=== PATIENT | female | born 1975 | race Caucasian/White ===

== ENCOUNTER 2017-11-30 19:18 | Inpatient (IN) ==
--- NOTE | 2017-11-30 19:42 | Emergency Department Note ---
Disposition Clinical Impression: Hypokalemia, Hyponatremia, Hypochloremia, Influenza A, Septic shock UTI (urinary tract infection) Qualifiers: Urinary tract infection type: site unspecified Hematuria presence: with hematuria Qualified Code(s): N39.0 - Urinary tract infection, site not specified Hypotension Qualifiers: Hypotension type: unspecified hypotension type Qualified Code(s): I95.9 - Hypotension, unspecified Sepsis Qualifiers: Sepsis type: sepsis due to unspecified organism Qualified Code(s): A41.9 - Sepsis, unspecified organism Disposition: Admitted As Inpatient Condition: Fair Time of Disposition: 21:48 General Adult HPI - General Chief complaint: ED General Medical Stated complaint: flu - feeling worse Time Seen by Provider: 11/30/17 19:25 Source: patient Limitations: no limitations Nursing Notes Reviewed: Yes Vital Signs Reviewed: Yes - History of Present Illness HPI Narrative: Patient is a 42-year-old female with past medical history of COPD, hypertension. She was recently diagnosed with flu yesterday. She states that she has had 5 days of cough, congestion, diffuse body aches, nausea, vomiting, diarrhea. Denies any blood in her vomit or stool. She is unsure of fever, has not checked her temperature at home. She states that she has had worsening of her symptoms, feels dehydrated, especially with stool output. She feels lightheaded when she goes from sitting to standing. She is concerned for dehydration and was told that if she had any worsening symptoms from urgent care yesterday that she was to come to the hospital for admission. Pain Scale: 0 - Related Data Home Medications Medication Instructions Recorded Confirmed Klonopin 11/29/17 Lisinopril-HCTZ 10-12.5 11/29/17 Metoprolol 11/29/17 Omeprazole 11/29/17 11/29/17 Paroxetine 11/29/17 Zofran ODT 11/29/17 Previous Rx's Medication Instructions Recorded Meclizine HCl [Verticalm] 25 mg PO TID PRN #30 tablet 11/29/17 Oseltamivir [Tamiflu] 75 mg PO BID #10 capsule 11/29/17 Promethazine [Phenergan] 25 mg PO Q6HR PRN #15 tablet 11/29/17 Promethazine/Dextromethorphan 5 ml PO Q4-6H PRN #120 ml 11/29/17 [Promethazine-Dm Syrup] Allergies Allergy/AdvReac Type Severity Reaction Status Date / Time almond Allergy Swelling Verified 09/17/17 09:56 of Lip/Tongue/Throat diphenhydramine Allergy Difficulty Verified 09/17/17 09:55 [From Benadryl] Breathing shellfish derived Allergy Swelling Verified 09/17/17 09:56 of Lip/Tongue/Throat Sulfa (Sulfonamide Allergy Itching Verified 09/17/17 09:55 Antibiotics) terfenadine [From Seldane] Allergy See Verified 09/17/17 09:55 Comments All systems ED: reviewed and negative except as stated. Constitutional: Denies: fever Cardiovascular: Denies: chest pain Respiratory: Reports: cough, dyspnea Gastrointestinal: Reports: nausea, vomiting, diarrhea. Denies: abdominal pain, constipation, hematemesis, melena, hematochezia Genitourinary: Denies: urgency, dysuria, frequency, hematuria, discharge, abnormal menses Musculoskeletal: Reports: myalgia Neurological: Denies: headache, weakness, numbness, paresthesias Past Medical History - Past Medical History Attestation: Yes The following information was validated with the patient. 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 - Social History Smoking Status: Current every day smoker Smokeless Tobacco Status: No Alcohol use: Reports: none Drug use: Reports: none Physical Exam - General Limitations: no limitations General appearance: alert, in no apparent distress - Head Head exam: atraumatic, normocephalic, normal inspection - Eye Eye exam: Present: normal appearance, PERRL, EOMI - ENT ENT exam: normal exam, normal oropharynx, mucous membranes dry - Neck Neck exam: Present: normal inspection, full ROM, trachea midline - Chest Chest inspection: Present: normal inspection, symmetric chest wall rise - Respiratory Respiratory exam: Present: wheezes (wheeze right lower lobe;tachypnic) - Cardiovascular Cardiovascular exam: Present: normal rhythm, tachycardia, normal heart sounds - Abdominal Exam Abdominal exam: Present: soft, tenderness (very mild generalized tenderness). Absent: distention, guarding, rebound, rigidity, Pond's sign, Rovsing's sign, tenderness at McBurney's Point - Extremities Exam Extremities exam: Present: normal inspection, full ROM. Absent: tenderness, pedal edema - Back Exam Back exam: Present: normal inspection, full ROM. Absent: tenderness - Neurological Exam Neurological exam: Present: alert, oriented X3, CN II-XII intact. Absent: motor sensory deficit - Psychiatric Psychiatric exam: Present: normal affect, normal mood - Skin Skin exam: Present: warm, dry, intact, normal color Course Course Narrative: On my exam, patient was tachycardic and hypertensive. Her heart rate was in the low 100s. Blood pressure was systolic of 70. She is also tachypneic on my exam. Concern for sepsis with fluids source. We will give the patient 2 L bolus, obtained sepsis labs including blood cultures, lactic, BMP, CBC, troponin was obtained EKG. Patient does report a history of A. fib, however, patient is not in A. fib currently. EKG shows sinus tachycardia with no acute ST elevation or depression. Also perform a chest x-ray to assess for any pneumonia, patient does have a wheeze in the right lower lobe. This is likely secondary to COPD, smoking history, flu. However, there is concern for pneumonia after viral flu infection. 21:41 creatinine elevated at 3.1, potassium 2.9. We will replace with oral potassium. Urine sent for culture, it was a cath specimen and positive for small leuk - will treat with rocephin. Patient has received 3 L of normal saline. Blood pressure now up to systolic of upper 90s, up from systolic of 70s. Mentating well at this time. Heart rate is now within normal limits. We will admit for further care - sepsis, flu, hypotension, hypokalemia, DEMETRI, UTI. Vital Signs Temperature 98 F 11/30/17 19:19 Pulse Rate 98 11/30/17 19:19 Respiratory Rate 18 11/30/17 19:19 Blood Pressure 79/60 11/30/17 19:19 O2 Sat by Pulse Oximetry 98 11/30/17 19:19 Temperature 98 F 11/30/17 19:19 Pulse Rate 88 11/30/17 21:26 Respiratory Rate 12 11/30/17 21:26 Blood Pressure 90/56 11/30/17 21:26 O2 Sat by Pulse Oximetry 98 11/30/17 19:19 Oxygen Delivery Oxygen Delivery Room Air Medical Decision Making - MDM Narrative Medical decision making narrative: On my exam, patient was tachycardic and hypertensive. Her heart rate was in the low 100s. Blood pressure was systolic of 70. She is also tachypneic on my exam. Concern for sepsis with fluids source. We will give the patient 2 L bolus, obtained sepsis labs including blood cultures, lactic, BMP, CBC, troponin was obtained EKG. Patient does report a history of A. fib, however, patient is not in A. fib currently. EKG shows sinus tachycardia with no acute ST elevation or depression. Also perform a chest x-ray to assess for any pneumonia, patient does have a wheeze in the right lower lobe. This is likely secondary to COPD, smoking history, flu. However, there is concern for pneumonia after viral flu infection. 21:41 creatinine elevated at 3.1, potassium 2.9. We will replace with oral potassium. Urine sent for culture, it was a cath specimen and positive for small leuk - will treat with rocephin. Patient has received 3 L of normal saline. Blood pressure now up to systolic of upper 90s, up from systolic of 70s. Mentating well at this time. Heart rate is now within normal limits. We will admit for further care - sepsis, flu, hypotension, hypokalemia, DEMETRI, UTI. - Medical Records Medical records reviewed: Yes I reviewed the patient's medical records. - Lab Data Lab results reviewed: Yes I reviewed the patient's lab results. Result diagrams: 11/30/17 20:00 11/30/17 19:42 Lab Results 11/30/17 11/30/17 11/30/17 Range/Units 19:42 19:42 19:42 WBC (4.3-11.1) K/mcL RBC (3.82-4.97) M/mcL Hgb (11.5-15.4) g/dL Hct (35.3-44.9) % MCV (83.0-100.0) fL MCH (28.0-33.3) pg MCHC (31.6-35.5) g/dL RDW (11.5-14.5) % Plt Count (140-400) K/mcL MPV (9.4-12.4) fL Immature Gran % (0-4) % Seg Neutrophils % % Lymphocytes % % Monocytes % % Eosinophils % % Basophils % % Neutrophils # (1.6-8.9) K/mcL Lymphocytes # (0.6-4.6) K/mcL Monocytes # (0.0-1.3) K/mcL Eosinophils # (0.0-0.6) K/mcL Basophils # (0.0-0.2) K/mcL PT 11.9 (9.4-12.1) Seconds INR 1.1 APTT 34.0 (26.0-36.0) Seconds Sodium 129 L (136-145) mEq/L Potassium 2.9 L (3.5-5.1) mEq/L Chloride 96 L (98-107) mEq/L Carbon Dioxide 22 L (23-29) mEq/L BUN 27 H (6-20) mg/dL Creatinine 3.15 H (0.60-1.20) mg/dL Est GFR ( Amer) 19 L (> 60) Est GFR (Non-Af Amer) 16 L (> 60) BUN/Creatinine Ratio 9 (6-26) Glucose 135 H (70-105) mg/dL Calculated Osmolality 275 L (280-300) Lactic Acid (0.5-2.2) mmol/L Calcium 8.5 L (8.6-10.3) mg/dL Phosphorus 3.3 (2.7-4.5) mg/dL Magnesium 2.0 (1.6-2.6) mg/dL Total Bilirubin 0.5 (0.3-1.0) mg/dL Direct Bilirubin 0.2 (0.0-0.2) mg/dL Indirect Bilirubin 0.3 (0.0-1.2) mg/dL AST 88 H (13-39) Units/L ALT 76 H (7-52) Units/L Alkaline Phosphatase 55 (34-104) Units/L Troponin I 0.03 (< 0.04) ng/mL Serum Total Protein 7.1 (6.4-8.9) g/dL Albumin 3.8 (3.5-5.7) g/dL Globulin 3.3 (2.4-3.5) g/dL Albumin/Globulin Ratio 1.2 (1.1-2.2) Ur Specimen Adequacy Urine Color (Yellow) Urine Clarity (Clear) Urine pH (5.0-8.0) pH Units Ur Specific Harwood (1.010-1.025) Urine Protein (Neg-Trace) mg/dL Urine Glucose (UA) (Normal) mg/dL Urine Ketones (Negative) mg/dL Urine Blood (Negative) Urine Nitrite (Negative) Urine Bilirubin (Negative) Urine Urobilinogen (Normal) mg/dL Ur Leukocyte Esterase (Negative) Urine Microscopic RBC (0-3) per hpf Urine Microscopic WBC (0-3) per hpf Ur Squamous Epith Cells (None-Few) per lpf Urine Bacteria (None-Few) per hpf Ur Culture Indicated? (NO) 11/30/17 11/30/17 11/30/17 Range/Units 19:56 20:00 20:32 WBC 6.7 (4.3-11.1) K/mcL RBC 4.64 (3.82-4.97) M/mcL Hgb 14.4 (11.5-15.4) g/dL Hct 43.4 (35.3-44.9) % MCV 93.5 (83.0-100.0) fL MCH 31.0 (28.0-33.3) pg MCHC 33.2 (31.6-35.5) g/dL RDW 12.8 (11.5-14.5) % Plt Count 162 (140-400) K/mcL MPV 9.9 (9.4-12.4) fL Immature Gran % 0.4 (0-4) % Seg Neutrophils % 64.5 % Lymphocytes % 24.3 % Monocytes % 10.3 % Eosinophils % 0.1 % Basophils % 0.4 % Neutrophils # 4.3 (1.6-8.9) K/mcL Lymphocytes # 1.6 (0.6-4.6) K/mcL Monocytes # 0.7 (0.0-1.3) K/mcL Eosinophils # 0.0 (0.0-0.6) K/mcL Basophils # 0.0 (0.0-0.2) K/mcL PT (9.4-12.1) Seconds INR APTT (26.0-36.0) Seconds Sodium (136-145) mEq/L Potassium (3.5-5.1) mEq/L Chloride (98-107) mEq/L Carbon Dioxide (23-29) mEq/L BUN (6-20) mg/dL Creatinine (0.60-1.20) mg/dL Est GFR ( Amer) (> 60) Est GFR (Non-Af Amer) (> 60) BUN/Creatinine Ratio (6-26) Glucose (70-105) mg/dL Calculated Osmolality (280-300) Lactic Acid 1.7 (0.5-2.2) mmol/L Calcium (8.6-10.3) mg/dL Phosphorus (2.7-4.5) mg/dL Magnesium (1.6-2.6) mg/dL Total Bilirubin (0.3-1.0) mg/dL Direct Bilirubin (0.0-0.2) mg/dL Indirect Bilirubin (0.0-1.2) mg/dL AST (13-39) Units/L ALT (7-52) Units/L Alkaline Phosphatase (34-104) Units/L Troponin I (< 0.04) ng/mL Serum Total Protein (6.4-8.9) g/dL Albumin (3.5-5.7) g/dL Globulin (2.4-3.5) g/dL Albumin/Globulin Ratio (1.1-2.2) Ur Specimen Adequacy See below A Urine Color Dark Yellow (Yellow) Urine Clarity Cloudy A (Clear) Urine pH 5.5 (5.0-8.0) pH Units Ur Specific Harwood >= 1.030 H (1.010-1.025) Urine Protein 100 H (Neg-Trace) mg/dL Urine Glucose (UA) 100 H (Normal) mg/dL Urine Ketones 15 H (Negative) mg/dL Urine Blood Large H (Negative) Urine Nitrite Negative (Negative) Urine Bilirubin Large H (Negative) Urine Urobilinogen Normal (Normal) mg/dL Ur Leukocyte Esterase Small H (Negative) Urine Microscopic RBC 15-30 H (0-3) per hpf Urine Microscopic WBC 15-30 H (0-3) per hpf Ur Squamous Epith Cells Moderate H (None-Few) per lpf Urine Bacteria Many H (None-Few) per hpf Ur Culture Indicated? YES A (NO) - Radiology Data Radiology results reviewed: Yes I reviewed the patient's radiology results. Chest X-Ray 11/30/17 19:42 IMPRESSION: Low lung volumes. Discoid atelectasis at the left lung base. No active cardiopulmonary disease. D/ / Donny Alvarado MD / Donny Alvarado MD Interpreting Provider: Donny Alvarado MD - EKG Data EKG #1 EKG attestation: Yes I reviewed and interpreted this EKG. EKG results narrative: 11/30/2017 at 19:36. Sinus tachycardia. No acute ST elevation or depression. Rate 106. MD 132. QRS 77. QTC 398. Normal axis. S.B.A.R. - S.B.A.R. Situation: Demographics, MOA Background: Presenting Complaint, Relevant PMH, Meds, & Allergies Assessment: Vital Signs, Course and respsone to treatment, Exam Concerns, Patient/Family Expectation, Pertinant Lab Results, Outstanding Labs Recommendation: Barrier(s) to disposition, Recommendation based on pending studies, treatments, or consults S.B.A.R. Report Given to: Dr. Gutierrez SJuanyB.A.RJuany Repor Time: 21:48 Attestation Statement - Attestation Attestation: I examined this patient and my medical decision-making was reviewed with the Resident Physician. I agree with the documented findings, disposition and treatment plan as described except to the extent set forth below. Patient presents to the ED with a chief complaint of not feeling well. Patient had cough and body aches for 5 days. Got worse yesterday so she went to urgent care. She had a positive flu. She has been taking Tamiflu. States she feels worse today. Hurts to cough. Dizzy. On examination she is hypotensive. Lungs with rhonchi. Abdomen soft. Plan. Septic workup. Patient with positive flu. Hypotensive. IV fluids. Likely admission. Patient with UTI. Need septic shock criteria. She received 3 L normal saline. She is now normotensive with a systolic blood pressure in the 90s. Admitted to medicine. 45 minutes of critical care exclusive of separately billed procedures. Sepsis Reassessment Note - Evaluation Sepsis Screen: No Definite Risk Current Stage of Sepsis: septic shock Possible Source of Sepsis: genitourinary - Focused Exam Date of Encounter: 11/30/17 Time of Encounter: 22:16 Vital Signs: Vital Signs Temp Pulse Resp BP Pulse Ox 11/30/17 21:26 88 12 90/56 11/30/17 21:03 88 12 90/56 11/30/17 19:46 95 16 85/66 11/30/17 19:19 98 F 98 18 79/60 98 Respiratory Exam: Present: rhonchi Cardiovascular Exam: Present: RRR Capillary Refill: < 2 seconds Peripheral Pulse Strength: 3+ normal Peripheral Pulse Location: Radial Skin Exam: unremarkable - Reassessment Comments Comments: Patient now normotensive after 3 L normal saline bolus
[2017-11-30] MEDS ORDERED: 0.9 % Sodium Chloride 1,000 ML IVC SCH (19:45)
[2017-11-30 19:55] LABS: INR 1.1; Prothrombin Time 11.9 Seconds (9.4-12.1)
[2017-11-30 20:02] LABS: Basophils % 0.4 %; Eosinophils % 0.1 %; Hematocrit 43.4 % (35.3-44.9); Hemoglobin 14.4 g/dL (11.5-15.4); Immature Granulocytes % 0.4 % (0-4); Lymphocytes # 1.6 K/mcL (0.6-4.6); Lymphocytes % 24.3 %; Mean Corpuscular HGB Conc 33.2 g/dL (31.6-35.5); Mean Corpuscular Volume 93.5 fL (83.0-100.0); Mean Platelet Volume 9.9 fL (9.4-12.4); Monocytes # 0.7 K/mcL (0.0-1.3); Monocytes % 10.3 %; Neutrophils # 4.3 K/mcL (1.6-8.9); Platelet Count 162 K/mcL (140-400); Red Blood Count 4.64 M/mcL (3.82-4.97); Red Cell Distribution Width 12.8 % (11.5-14.5); Segmented Neutrophils % 64.5 %
[2017-11-30 20:22] LABS: Albumin 3.8 g/dL (3.5-5.7); Albumin/Globulin Ratio 1.2 (1.1-2.2); Bilirubin,Direct 0.2 mg/dL (0.0-0.2); Bilirubin,Indirect 0.3 mg/dL (0.0-1.2); Bilirubin,Total 0.5 mg/dL (0.3-1.0); Calcium 8.5 mg/dL (8.6-10.3); Globulin 3.3 g/dL (2.4-3.5); Phosphorous 3.3 mg/dL (2.7-4.5); Potassium 2.9 mEq/L (3.5-5.1); Total Protein 7.1 g/dL (6.4-8.9)
[2017-11-30] MEDS ORDERED: 0.9 % Sodium Chloride 1,000 ML IVC ONE ×2 (20:33→20:53)
[2017-11-30 20:49] LABS: Bilirubin,Urine Large (Negative); Blood,Urine Large (Negative); Clarity,Urine Cloudy (Clear); Color,Urine Dark Yellow (Yellow); Glucose,Urine (UA) 100 mg/dL (Normal); Ketones,Urine 15 mg/dL (Negative); Leukocyte Esterase,Urine Small (Negative); Nitrite,Urine Negative (Negative); PH,Urine 5.5 pH Units (5.0-8.0); Protein,Urine 100 mg/dL (Neg-Trace); Specific Gravity,Urine >= 1.030 (1.010-1.025); Urobilinogen,Urine Normal (Normal)
[2017-11-30 20:52] LABS: Bacteria,Urine Many per hpf (None-Few); Squamous Epithelial Cell,Urine Moderate per lpf (None-Few)
[2017-11-30 20:53] LABS: RBC,Urine 15-30 per hpf (0-3); WBC,Urine 15-30 per hpf (0-3)
[2017-11-30] MEDS ORDERED: Potassium Chloride Elixir 20 MEQ/15 ML UDC PO ONE (21:06)
[2017-11-30] MEDS ORDERED: Ondansetron 4 MG/2 ML VIAL IVP PRN (22:24)
[2017-11-30] MEDS ORDERED: *HR* Promethazine 25 MG/ML VIAL IVP PRN (22:24)
[2017-11-30] MEDS ORDERED: Acetaminophen 325 MG TABLET PO PRN (22:24)
[2017-11-30] MEDS ORDERED: Naloxone 0.4 MG/ML INJ IVP PRN (22:24)
[2017-11-30] MEDS ORDERED: *HR* HYDROcodone/Acet 5/325 mg TABLET PO PRN (22:24)
[2017-11-30] MEDS ORDERED: Mag Hydrox/Al Hydrox/Simeth 30 ML UDC PO PRN (22:24)
[2017-11-30] MEDS ORDERED: *HR* FentaNYL (PF) 100 MCG/2 ML VIAL IVP PRN (22:29)
--- NOTE | 2017-11-30 22:37 | Internal Med History&Physical ---
Date of Encounter: 11/30/17 Time of Encounter: 20:00 Assessment and Plan (1) Sepsis Current visit: Yes Status: Acute Admit the pt into Tele Does meet sepsis with source of inf UTI + FLu + EOD with DEMETRI Normal LA Cont IV fluids Blood cx drawn in the ER on Empirical abx Rocephin Qualifiers: Sepsis type: sepsis due to unspecified organism Qualified Code(s): A41.9 - Sepsis, unspecified organism (2) Influenza A Current visit: Yes Status: Acute Does have influenza A bronchitis cont Tamiflu renally dosed empirical ab Rocephin check Resp inf panel Duoneb + O2 PRN (3) Hypotension Current visit: Yes Status: Acute Due to dehydration / diarrhea / sepsis Improved with fluid bolus in the ER cont IV hydration Qualifiers: Hypotension type: unspecified hypotension type Qualified Code(s): I95.9 - Hypotension, unspecified (4) DEMETRI (acute kidney injury) Current visit: Yes Status: Acute Due to sepsis with dehdyration + UTI Aggressive IV hydration trend on cr avoid nephrotoxic meds (5) Hypokalemia Current visit: Yes Status: Acute cont replacing (6) Hyponatremia Current visit: Yes Status: Acute due to dehydration / hypovolemia cont IV hydration check labs in AM (7) UTI (urinary tract infection) Current visit: Yes Status: Acute on Rocephin Qualifiers: Urinary tract infection type: site unspecified Hematuria presence: without hematuria Qualified Code(s): N39.0 - Urinary tract infection, site not specified (8) Diarrhea Current visit: Yes Status: Acute mostly due to flu / viral path will check C. Diff continue symptomatic and supportive care Qualifiers: Diarrhea type: infectious Qualified Code(s): A09 - Infectious gastroenteritis and colitis, unspecified Internal Medicine - H&P: HPI Chief complaint: Fever, chills / body aches Admitted From: Emergency Dept Plans for Post Hospital Care: Home History of present illness: Ms. Ly is a 42 year old female atrial fibrillation, hypertension, migraine, anxiety, COPD - not on home O2 and chronic tobacco dependence presented to ER with 5 days of cough, congestion, diffuse body aches, nausea, vomiting and diarrhea. Apparnetly pt went to an urgent care center y/d found to have Influenza A positive and given Tamiflu and Phenergan sent her home. She states that her symptoms started worsening now and feels dehydrated. Here in the ER her BP was in low 80's which improved with IV hydration. She also had DEMETRI with Cr @ 3.15 Past Med Surg Social Fam HX - Past Medical History Medical history: atrial fibrillation, hypertension, migraine, other Psychiatric history: anxiety - Past Surgical History Surgical History: sinus surgery - Social History Smoking Status: Current every day smoker Smokeless Tobacco Status: No Alcohol use: none Drug use: none - Additional Family History Additional family history: Family hsitory reviewed and non contribuitory to current problem. Denied any kidney problems in the family Internal Medicine - H&P: Meds Klonopin 11/29/17 [History] Lisinopril-HCTZ 10-12.5 11/29/17 [History] Meclizine HCl [Verticalm] 25 mg PO TID PRN #30 tablet 11/29/17 [Rx] Metoprolol 11/29/17 [History] Omeprazole 11/29/17 [History] Oseltamivir [Tamiflu] 75 mg PO BID #10 capsule 11/29/17 [Rx] Paroxetine 11/29/17 [History] Promethazine [Phenergan] 25 mg PO Q6HR PRN #15 tablet 11/29/17 [Rx] Promethazine/Dextromethorphan [Promethazine-Dm Syrup] 5 ml PO Q4-6H PRN #120 ml 11/29/17 [Rx] Zofran ODT 11/29/17 [History] 3 Allergy/AdvReac Type Severity Reaction Status Date / Time almond Allergy Swelling Verified 09/17/17 09:56 of Lip/Tongue/Throat diphenhydramine Allergy Difficulty Verified 09/17/17 09:55 [From Benadryl] Breathing shellfish derived Allergy Swelling Verified 09/17/17 09:56 of Lip/Tongue/Throat Sulfa (Sulfonamide Allergy Itching Verified 09/17/17 09:55 Antibiotics) terfenadine [From Seldane] Allergy See Verified 09/17/17 09:55 Comments All Systems PM: A 10-system review of systems was performed and is negative for pertinent findings except as documented above in the HPI. Review of systems: All the systems are reviewed everything is benign except the systems and symptoms I mentioned in the history of present illness - Constitutional Vitals: Temp Pulse Resp BP Pulse Ox 98 F 88 18 92/60 98 11/30/17 19:19 11/30/17 21:26 11/30/17 22:25 11/30/17 22:25 11/30/17 19:19 General appearance: Present: mild distress (With generalized body aches), A&O X 3, answers questions appropriately - Head Head exam: Present: atraumatic, normal inspection - Neck Neck exam general surgery: Present: supple - Respiratory Respiratory exam: Present: decreased breath sounds. Absent: rales, respiratory distress, rhonchi, wheezes - Cardiovascular Cardiovascular exam: Present: RRR, +S1, +S2. Absent: tachycardia - GI/Abdominal GI/Abdominal exam: Present: normal bowel sounds, soft, tenderness (generalized aches). Absent: distended, guarding, rebound, rigid - Extremities Exam Extremities exam: Absent: calf tenderness, pedal edema, tenderness - Back Exam Back exam: Absent: CVA tenderness (L), CVA tenderness (R) - Neurological Exam Neurological exam: Present: alert, oriented X3 - Psychiatric Psychiatric exam: Present: anxious - Skin Skin exam: Absent: rash Internal Med - H&P Results - Labs CBC & Chem 7: 11/30/17 20:00 11/30/17 19:42
[2017-11-30] MEDS ORDERED: cefTRIAXone 1,000 MG in Water for inj. (sterile) 20 ML 10 ML IVPB ONE (23:00)
[2017-11-30] MEDS: 0.9 % Sodium Chloride w KCl 20 MEQ/1,000 ML MLS IVC SCH (23:49)
[2017-12-01 00:42] LABS: Adenovirus Not Detected (Not Detect); Bordetella Pertussis Not Detected (Not Detect); Chlamydophila pneumoniae Not Detected (Not Detect); Coronavirus 229E Not Detected (Not Detect); Coronavirus HKU1 Not Detected (Not Detect); Coronavirus NL63 Not Detected (Not Detect); Coronavirus OC43 Not Detected (Not Detect); Human Metapneumovirus Not Detected (Not Detect); Human Rhinovirus/Enterovirus Not Detected (Not Detect); Influenza A Subtype 2009 H1 Not Detected (Not Detect); Influenza A Untypeable Not Detected (Not Detect); Influenza B Not Detected (Not Detect); Mycoplasma pneumoniae Not Detected (Not Detect); Parainfluenza Virus 1 Not Detected (Not Detect); Parainfluenza Virus 2 Not Detected (Not Detect); Parainfluenza Virus 3 Not Detected (Not Detect); Parainfluenza Virus 4 Not Detected (Not Detect); Respiratory Syncytial Virus Not Detected (Not Detect)
[2017-12-01] MEDS: Ipratropium/Albuterol Neb 3 ML IH SCH ×6 (03:38→19:46)
[2017-12-01] MEDS: *HR* Heparin 5,000 UNIT/ML VIAL SQ SCH ×2 (06:36→17:11)
[2017-12-01] MEDS: 0.9 % Sodium Chloride w KCl 20 MEQ/1,000 ML MLS IVC SCH ×2 (08:09→16:08)
[2017-12-01] MEDS: Oseltamivir Phosphate 30 MG CAPSULE PO SCH (08:09)
[2017-12-01] MEDS: cefTRIAXone 1,000 MG in Water for inj. (sterile) 20 ML 10 ML IVP SCH (08:09)
[2017-12-01 08:50] LABS: Basophils % 0.5 %; Eosinophils % 0.2 %; Hematocrit 39.3 % (35.3-44.9); Immature Granulocytes % 0.4 % (0-4); Lymphocytes # 1.4 K/mcL (0.6-4.6); Lymphocytes % 25.5 %; Mean Corpuscular HGB Conc 33.1 g/dL (31.6-35.5); Mean Corpuscular Volume 93.8 fL (83.0-100.0); Mean Platelet Volume 10.3 fL (9.4-12.4); Monocytes # 0.7 K/mcL (0.0-1.3); Monocytes % 13.2 %; Neutrophils # 3.4 K/mcL (1.6-8.9); Platelet Count 136 K/mcL (140-400); Red Blood Count 4.19 M/mcL (3.82-4.97); Red Cell Distribution Width 13.1 % (11.5-14.5); Segmented Neutrophils % 60.2 %
[2017-12-01 09:08] LABS: Calcium 7.2 mg/dL (8.6-10.3); Magnesium 1.7 mg/dL (1.6-2.6); Phosphorous 2.3 mg/dL (2.7-4.5)
--- NOTE | 2017-12-01 15:26 | Internal Med Progress Note ---
Date of Encounter: 12/01/17 Time of Encounter: 10:45 - Assessment and plan (1) Sepsis Current Visit: Yes Status: Acute Assessment and plan: Clinically feeling better. Continue IV antibiotics at this time. Cultures are so far negative. Continue treatment for underlying influenza. Qualifiers: Sepsis type: sepsis due to unspecified organism Qualified Code(s): A41.9 - Sepsis, unspecified organism (2) DEMETRI (acute kidney injury) Current Visit: Yes Status: Acute Assessment and plan: Renal function is improving. Likely from sepsis. Continue monitoring vital signs closely. Monitor urine output. IV fluids. (3) Diarrhea Current Visit: Yes Status: Suspected Assessment and plan: C. difficile negative. Continues to have diarrhea. Will check GI panel. GI panel negative, will place patient on Imodium. Qualifiers: Diarrhea type: infectious Qualified Code(s): A09 - Infectious gastroenteritis and colitis, unspecified (4) Hypotension Current Visit: Yes Status: Resolved Assessment and plan: Due to sepsis. Resolved now. Qualifiers: Hypotension type: unspecified hypotension type Qualified Code(s): I95.9 - Hypotension, unspecified (5) Influenza A Current Visit: Yes Status: Acute Assessment and plan: Continue Tamiflu. (6) UTI (urinary tract infection) Current Visit: Yes Status: Acute Assessment and plan: Continue ceftriaxone. Follow culture results. Moderate risk for complications. Qualifiers: Urinary tract infection type: site unspecified Hematuria presence: without hematuria Qualified Code(s): N39.0 - Urinary tract infection, site not specified - Subjective Interval history: Patient is doing better today. Now having better urine output. She says that she had not passed any urine over the previous 48 hours. Continues to have diarrhea. Denies any chest pain or palpitations. No fever or chills. - Constitutional Vitals: Temp Pulse Resp BP Pulse Ox 98.4 F 96 18 121/73 98 12/01/17 14:56 12/01/17 14:56 12/01/17 14:56 12/01/17 14:56 12/01/17 14:56 General appearance: Present: cooperative, A&O X 3, answers questions appropriately - Neck Neck exam general surgery: Present: supple, trachea midline. Absent: lymphadenopathy - Respiratory Respiratory exam: Present: CTAB. Absent: accessory muscle use, rales, rhonchi, wheezes - Cardiovascular Cardiovascular exam: Present: RRR, +S1, +S2. Absent: diastolic murmur, gallop, rubs, systolic murmur - GI/Abdominal GI/Abdominal exam: Present: normal bowel sounds, soft, no peritoneal signs. Absent: distended, tenderness - Extremities Exam Extremities exam: Present: warm, radial pulses palpable and symmetrical. Absent : calf tenderness, cyanotic, pedal edema - Neurological Exam Neurological exam: Present: CN II-XII intact, oriented X3, no focal deficits. Absent: facial droop, speech deficit - Skin Skin exam: Present: dry, intact Internal Medicine: Result - Labs CBC & Chem 7: 12/01/17 07:33 12/01/17 07:33 Labs: Short CBC 12/01/17 Range/Units 07:33 WBC 5.6 (4.3-11.1) K/mcL Hgb 13.0 (11.5-15.4) g/dL Hct 39.3 (35.3-44.9) % Plt Count 136 L (140-400) K/mcL Neutrophils # 3.4 (1.6-8.9) K/mcL BMP 12/01/17 07:33 Sodium 136 Potassium 4.0 D Chloride 113 H Carbon Dioxide 15 L BUN 23 H Creatinine 1.67 H Glucose 103 Calcium 7.2 L - ABG Interpretation ABG results: PT/INR, D-dimer PT 11.9 Seconds (9.4-12.1) 11/30/17 19:42 Consult Discharge Plan - Plan Referrals: Loyd Costello DO [Primary Care Provider] -
[2017-12-01 16:07] LABS: Adenovirus F 40/41 PCR Not detected (Not detect); Astrovirus PCR Not detected (Not detect); C.difficile Toxin A/B by PCR Not detected (Not detect); Campylobacter by PCR Not detected (Not detect); Cryptosporidium by PCR Not detected (Not detect); Cyclospora cayetanensis PCR Not detected (Not detect); E. coli O157 by PCR Not detected (Not detect); Entamoeba histolytica PCR Not detected (Not detect); Enteroaggregative E.coli(EAEC) Not detected (Not detect); Enteropathogenic E.coli(EPEC) Not detected (Not detect); Enterotoxigenic E.coli (ETEC) Not detected (Not detect); Giardia lamblia PCR Not detected (Not detect); Norovirus GI/GII PCR Not detected (Not detect); Plesiomonas shigelloides PCR Not detected (Not detect); Rotavirus A PCR Not detected (Not detect); Salmonella PCR Not detected (Not detect); Sapovirus PCR Not detected (Not detect); Shig/EnteroinvasiveE coli EIEC Not detected (Not detect); Shigalike tox-prod E coli STEC Not detected (Not detect); Vibrio PCR Not detected (Not detect); Vibrio cholerae PCR Not detected (Not detect); Yersinia enterocolitica PCR Not detected (Not detect)
[2017-12-01 17:54] LABS: Acinetobacter baumannii by PCR Not Detected (Not Detect); Candida albicans by PCR Not Detected (Not Detect); Candida glabrata by PCR Not Detected (Not Detect); Candida krusei by PCR Not Detected (Not Detect); Candida parapsilosis by PCR Not Detected (Not Detect); Candida tropicalis by PCR Not Detected (Not Detect); Enterococcus by PCR Not Detected (Not Detect); Escherichia coli by PCR Not Detected (Not Detect); Klebsiella oxytoca by PCR Not Detected (Not Detect); Klebsiella pneumoniae by PCR Not Detected (Not Detect); Pseudomonas aeruginosa by PCR Not Detected (Not Detect); Serratia marcescens by PCR Not Detected (Not Detect); Staphylococcus aureus by PCR Not Detected (Not Detect); Streptococcus agalactiae(B)PCR Not Detected (Not Detect); Streptococcus by PCR Not Detected (Not Detect); Streptococcus pneumoniae PCR Not Detected (Not Detect); Streptococcus pyogenes (A) PCR Not Detected (Not Detect); blaKPC Carbapenem-Resist Gene Not Detected (Not Detect); mecA Methicillin-Resist Gene ***DETECTED*** (Not Detect); vanA/B Vancomycin-Resist Genes Not Detected (Not Detect)
[2017-12-02] MEDS: Ipratropium/Albuterol Neb 3 ML IH SCH ×6 (00:21→20:12)
[2017-12-02] MEDS: 0.9 % Sodium Chloride w KCl 20 MEQ/1,000 ML MLS IVC SCH ×2 (03:03→09:05)
[2017-12-02 03:48] LABS: Basophils % 0.3 %; Eosinophils % 0.6 %; Hematocrit 43.6 % (35.3-44.9); Hemoglobin 14.4 g/dL (11.5-15.4); Immature Granulocytes % 0.6 % (0-4); Lymphocytes # 1.5 K/mcL (0.6-4.6); Lymphocytes % 19.9 %; Mean Corpuscular Hemoglobin 31.4 pg (28.0-33.3); Mean Platelet Volume 10.2 fL (9.4-12.4); Monocytes # 0.7 K/mcL (0.0-1.3); Monocytes % 9.1 %; Neutrophils # 5.1 K/mcL (1.6-8.9); Platelet Count 130 K/mcL (140-400); Red Blood Count 4.59 M/mcL (3.82-4.97); Red Cell Distribution Width 13.3 % (11.5-14.5); Segmented Neutrophils % 69.5 %
[2017-12-02 04:11] LABS: BUN/Creatinine Ratio 13 (6-26); Blood Urea Nitrogen 14 mg/dL (6-20); Calcium 8.4 mg/dL (8.6-10.3); Carbon Dioxide 17 mEq/L (23-29); Chloride 114 mEq/L (98-107); Glucose 107 mg/dL (70-105); Osmolality,Calculated 289 (280-300); Potassium 4.1 mEq/L (3.5-5.1); Sodium 139 mEq/L (136-145); eGFR For African Americans > 60 (> 60); eGFR For Non-African Americans 53 (> 60)
[2017-12-02] MEDS: *HR* Heparin 5,000 UNIT/ML VIAL SQ SCH ×2 (06:19→18:41)
--- NOTE | 2017-12-02 07:44 | Electrocardiograph Report ---
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
[2017-12-02] MEDS: Oseltamivir Phosphate 30 MG CAPSULE PO SCH (09:06)
[2017-12-02] MEDS: cefTRIAXone 1,000 MG in Water for inj. (sterile) 20 ML 10 ML IVP SCH (09:06)
[2017-12-02] MEDS ORDERED: clonazePAM 0.5 MG TABLET PO PRN (11:36)
--- NOTE | 2017-12-02 11:40 | Internal Med Progress Note ---
Date of Encounter: 12/02/17 Time of Encounter: 11:38 - Assessment and plan (1) Sepsis Current Visit: Yes Status: Acute Assessment and plan: Once after 2 blood cultures positive for gram-positive cocci-possible coagulase- negative staph which is likely contaminant. Patient is currently receiving intravenous ceftriaxone for possible urinary source of infection. Also being treated for influenza. Continue current antibiotics. Sepsis appears to be resolving. Patient remains tachycardic but this is likely due to withdrawal from metoprolol which was held at admission due to low blood pressure. We will resume metoprolol. Qualifiers: Sepsis type: sepsis due to unspecified organism Qualified Code(s): A41.9 - Sepsis, unspecified organism (2) DEMETRI (acute kidney injury) Current Visit: Yes Status: Resolved Assessment and plan: Acute kidney injury has resolved. Will resume patient's home dose of lisinopril and hydrochlorothiazide. (3) Diarrhea Current Visit: Yes Status: Acute Assessment and plan: Improving. No signs of infection. C. difficile negative. GI panel has been entirely negative. Patient has been placed on Imodium for symptom relief. Qualifiers: Diarrhea type: functional diarrhea Qualified Code(s): K59.1 - Functional diarrhea (4) Hypotension Current Visit: Yes Status: Resolved Assessment and plan: From sepsis. Now resolved. Qualifiers: Hypotension type: unspecified hypotension type Qualified Code(s): I95.9 - Hypotension, unspecified (5) Influenza A Current Visit: Yes Status: Acute Assessment and plan: Continue Tamiflu. (6) UTI (urinary tract infection) Current Visit: Yes Status: Acute Assessment and plan: Being treated with ceftriaxone. Urine culture shows no growth. We will transition to oral ciprofloxacin to complete antibiotic course. Qualifiers: Urinary tract infection type: site unspecified Hematuria presence: without hematuria Qualified Code(s): N39.0 - Urinary tract infection, site not specified (7) Essential hypertension Current Visit: Yes Status: Chronic Assessment and plan: Patient takes metoprolol and lisinopril/hydrochlorothiazide. We will resume these medications. Patient's blood pressure has been mostly well controlled with intermittent elevations. She will however remains tachycardic likely due to beta jewell withdrawal. We will continue to monitor with telemetry. - Subjective Interval history: Patient was doing better this morning but then went to take a shower and has been very dyspneic since then. She also feels anxious. Denies any chest pain. No palpitations. Continues to have significant cough. - Constitutional Vitals: Temp Pulse Resp BP Pulse Ox 98.7 F 100 16 129/86 100 12/02/17 09:11 12/02/17 11:02 12/02/17 11:02 12/02/17 09:11 12/02/17 11:02 General appearance: Present: cooperative, mild distress, A&O X 3, answers questions appropriately - Neck Neck exam general surgery: Present: supple, trachea midline. Absent: lymphadenopathy - Respiratory Respiratory exam: Present: rhonchi, wheezes, tachypnea. Absent: accessory muscle use, rales - Cardiovascular Cardiovascular exam: Present: RRR, +S1, +S2, tachycardia. Absent: diastolic murmur, gallop, rubs, systolic murmur - GI/Abdominal GI/Abdominal exam: Present: normal bowel sounds, soft, no peritoneal signs. Absent: distended, tenderness - Extremities Exam Extremities exam: Present: warm, radial pulses palpable and symmetrical. Absent : calf tenderness, cyanotic, pedal edema Internal Medicine: Result - Labs CBC & Chem 7: 12/02/17 03:19 12/02/17 03:19 Labs: Short CBC 12/02/17 Range/Units 03:19 WBC 7.3 (4.3-11.1) K/mcL Hgb 14.4 (11.5-15.4) g/dL Hct 43.6 (35.3-44.9) % Plt Count 130 L (140-400) K/mcL Neutrophils # 5.1 (1.6-8.9) K/mcL BMP 12/02/17 03:19 Sodium 139 Potassium 4.1 Chloride 114 H Carbon Dioxide 17 L BUN 14 Creatinine 1.12 Glucose 107 H Calcium 8.4 L - ABG Interpretation ABG results: PT/INR, D-dimer PT 11.9 Seconds (9.4-12.1) 11/30/17 19:42 Consult Discharge Plan - Plan Referrals: Loyd Costello DO [Primary Care Provider] -
[2017-12-02] MEDS: Metoprolol XL (24 HR) Succ 50 MG TAB.ER.24H PO SCH (12:27)
[2017-12-03] MEDS: Ipratropium/Albuterol Neb 3 ML IH SCH ×5 (00:25→15:40)
[2017-12-03] MEDS: *HR* Heparin 5,000 UNIT/ML VIAL SQ SCH (05:32)
[2017-12-03] MEDS: Metoprolol XL (24 HR) Succ 50 MG TAB.ER.24H PO SCH (08:27)
[2017-12-03] MEDS: cefTRIAXone 1,000 MG in Water for inj. (sterile) 20 ML 10 ML IVP SCH (08:28)
[2017-12-03 11:21] VITALS: BP 124/89
[2017-12-03] MEDS ORDERED: FLUARIX QUAD 2017-18 36MOS UP/PF 0.5 ML SYRINGE IM ONE (11:26)
--- NOTE | 2017-12-03 14:49 | Discharge Summary ---
Date of Encounter: 12/03/17 Time of Encounter: 11:00 - Discharge Diagnosis (1) Influenza A Priority: Primary Status: Acute (2) Sepsis Priority: Primary Status: Acute Qualifiers: Sepsis type: sepsis due to unspecified organism Qualified Code(s): A41.9 - Sepsis, unspecified organism - Discharge Medications Home Medications: Lisinopril-HCTZ 10-12.5 [Prinzide 10-12.5] 1 tab PO DAILY 11/29/17 [History] Meclizine HCl [Verticalm] 25 mg PO TID PRN #30 tablet 11/29/17 [Rx] Metoprolol [Lopressor] 150 mg PO DAILY 11/29/17 [History] Omeprazole [PriLOSEC] 20 mg PO DAILY 11/29/17 [History] Paroxetine [Paxil] 30 mg PO DAILY 11/29/17 [History] clonazePAM [Clonazepam] 0.5 mg PO DAILY PRN 11/29/17 [History] Benzoyl Peroxide [Bp Gel] 1 appl TP AD 12/01/17 [History] Doxycycline Hyclate [Vibramycin] 100 mg PO BID 12/01/17 [History] Allergies/Adverse Reactions: 3 Allergy/AdvReac Type Severity Reaction Status Date / Time almond Allergy Swelling Verified 09/17/17 09:56 of Lip/Tongue/Throat diphenhydramine Allergy Difficulty Verified 09/17/17 09:55 [From Benadryl] Breathing shellfish derived Allergy Swelling Verified 09/17/17 09:56 of Lip/Tongue/Throat Sulfa (Sulfonamide Allergy Itching Verified 09/17/17 09:55 Antibiotics) terfenadine [From Seldane] Allergy See Verified 09/17/17 09:55 Comments Date of admission: 11/30/17 22:24 Primary care physician: Loyd Costello, - Patient Status Disposition: Home, Self-Care Condition: Fair - Discharge Instructions Follow Up With: Jay Malave [Non-Partnered Physician] - 12/09/17 9:00 am Hospital course: Patient is a 42-year-old female with past medical history significant for atrial fibrillation, hypertension, migraine, anxiety, COPD and tobacco dependence, who presented to ER on 11/30/17 with cough. Patient report of a five-day history of cough, congestion, diffuse body aches, nausea, vomiting and diarrhea. She went to urgent care center and was found to have Influenza A positive and started on Tamiflu and Phenergan sent her home. She stated that her symptoms started worsening so she decided to come to the ER for evaluation. In the ER her BP was in low 80's which improved with IV hydration. She also had acute renal failure with Cr @ 3.15. Patient was admitted to the medical surgical floor for treatment of sepsis and acute renal failure secondary to influenza A. During patients hospital stay her symptoms improved with completion of a 5 day course of Tamiflu. Patients acute renal failure also resolved. She will be discharged home to follow-up with primary care provider as needed. - Time Spent with Patient Total time spent providing and/or coordinating discharge services: Less than 30 minutes - Constitutional Vitals: Temp Pulse Resp BP Pulse Ox 98.3 F 84 19 124/89 92 12/03/17 11:17 12/03/17 11:17 12/03/17 11:17 12/03/17 11:17 12/03/17 11:17 General appearance: Present: cooperative, mild distress, A&O X 3, answers questions appropriately - Respiratory Respiratory exam: Present: rhonchi (Patient has a long-standing history of tobacco dependence) - Cardiovascular Cardiovascular exam: Present: RRR, +S1, +S2. Absent: diastolic murmur, gallop, rubs, systolic murmur
== END 2017-12-03 15:52 | disposition home or self-care (01) | DRG 720 ==
LOC: 2ANU 19:18 → EMEROO 19:18 → 2NNU 22:11 → SUATTDRO 22:24 → 2NNU 22:33
PROVIDERS: ADMIT Family Medicine; ATTEND Hospitalist

== ENCOUNTER 2022-08-01 19:42 | Observation (INO) ==
[2022-08-01 20:18] LABS: Basophils # 0.1 K/mcL (0.0-0.2); Basophils % 0.7 %; Eosinophils # 0.2 K/mcL (0.0-0.6); Eosinophils % 2.3 %; Hematocrit 46.1 % (35.3-44.9); Hemoglobin 15.4 g/dL (11.5-15.4); Immature Granulocytes % 0.5 % (0-4); Lymphocytes # 2.2 K/mcL (0.6-4.6); Lymphocytes % 21.7 %; Mean Corpuscular HGB Conc 33.4 g/dL (31.6-35.5); Mean Corpuscular Hemoglobin 32.3 pg (28.0-33.3); Mean Corpuscular Volume 96.6 fL (83.0-100.0); Mean Platelet Volume 9.7 fL (9.4-12.4); Monocytes # 1.2 K/mcL (0.0-1.3); Monocytes % 11.5 %; Neutrophils # 6.3 K/mcL (1.6-8.9); Platelet Count 231 K/mcL (140-400); Red Blood Count 4.77 M/mcL (3.82-4.97); Red Cell Distribution Width 12.2 % (11.5-14.5); Segmented Neutrophils % 63.3 %
[2022-08-01 20:33] LABS: BUN/Creatinine Ratio 14 (6-26); Blood Urea Nitrogen 10 mg/dL (6-20); Calcium 9.6 mg/dL (8.6-10.3); Carbon Dioxide 27 mEq/L (23-29); Chloride 97 mEq/L (98-107); Glucose 132 mg/dL (70-105); Osmolality,Calculated 277 (280-300); Potassium 4.1 mEq/L (3.5-5.1); Sodium 133 mEq/L (136-145); Troponin I < 0.03 ng/mL (< 0.04)
[2022-08-02 00:08] LABS: INR 1.1
[2022-08-02 00:11] LABS: Activated Partial Thrombo Time 28.9 Seconds (26.0-36.0)
[2022-08-02] MEDS ORDERED: Naloxone 0.4 MG/ML INJ IVP PRN (00:41)
[2022-08-02] MEDS ORDERED: Melatonin 3 MG TABLET PO PRN (00:41)
[2022-08-02] MEDS ORDERED: Ondansetron 4 MG/2 ML VIAL IVP PRN (00:41)
[2022-08-02] MEDS ORDERED: Acetaminophen 325 MG TABLET PO PRN (00:41)
[2022-08-02] MEDS ORDERED: *HR* Dextrose 50 % in Water (Syg) 50 ML SYRINGE IVP PRN (00:48)
[2022-08-02] MEDS ORDERED: Dextrose Gel 15 GM/37.5 ML TUBE PO PRN ×2 (00:48)
[2022-08-02] MEDS ORDERED: D5% in Water 1,000 ML IVC PRN (00:48)
[2022-08-02] MEDS ORDERED: *HR* Heparin 5,000 UNIT/ML VIAL SQ SCH (06:00)
[2022-08-02 06:35] LABS: Hematocrit 42.2 % (35.3-44.9); Mean Corpuscular HGB Conc 33.2 g/dL (31.6-35.5); Mean Corpuscular Hemoglobin 32.1 pg (28.0-33.3); Mean Corpuscular Volume 96.8 fL (83.0-100.0); Mean Platelet Volume 9.8 fL (9.4-12.4); Platelet Count 184 K/mcL (140-400); Red Blood Count 4.36 M/mcL (3.82-4.97); Red Cell Distribution Width 12.1 % (11.5-14.5); White Blood Count 7.5 K/mcL (4.3-11.1)
[2022-08-02] MEDS ORDERED: Regadenoson 0.4 MG/5 ML SYRINGE IVP ONE (06:51)
[2022-08-02 06:54] LABS: BUN/Creatinine Ratio 13 (6-26); Blood Urea Nitrogen 9 mg/dL (6-20); Calcium 9.1 mg/dL (8.6-10.3); Carbon Dioxide 27 mEq/L (23-29); Chloride 99 mEq/L (98-107); Chol/HDL Ratio 2.8 (0-4.9); Cholesterol 147 mg/dL (< 200); Glucose 106 mg/dL (70-105); HDL Cholesterol 53 mg/dL (40-59); LDL Cholesterol,Calculated 62 mg/dL (< 100); Magnesium 1.6 mg/dL (1.6-2.6); Osmolality,Calculated 277 (280-300); Phosphorous 4.5 mg/dL (2.7-4.5); Potassium 3.7 mEq/L (3.5-5.1); Sodium 134 mEq/L (136-145); Triglycerides 159 mg/dL (< 150)
[2022-08-02 10:47] VITALS: BP 158/92; PULSE 67; TEMP 98.1; O2SAT 94
[2022-08-02 11:27] LABS: Estimated Average Glucose 128 mg/dl; Hemoglobin A1C 6.1 %
[2022-08-02] MEDS ORDERED: amLODIPine 5 MG TABLET PO SCH (13:30)
[2022-08-03] MEDS ORDERED: Metoprolol XL (24 HR) Succ 50 MG TAB.ER.24H PO SCH (09:00)
== END 2022-08-02 15:26 | disposition home or self-care (01) ==
LOC: 3BNU 19:42 → EMEROOARM 19:42 → SUATTDRO 08-02 02:52 → 3BNU 08-02 03:45
PROVIDERS: ADMIT Internal Medicine; ATTEND Registered Nurse